=== PATIENT | male | born 1995 | race Caucasian/White ===

== ENCOUNTER 2016-11-11 22:03 | Emergency (ER) | payer OTHER ==
[~2016-11-11] VITALS: Ht 180.3 cm; Wt 81.1 kg
[2016-11-11 23:03] LABS: EOSINOPHIL (%) 3.1 % (0-5); EOSINOPHIL COUNT 0.2 K/uL (0-0.3); IMMATURE GRANULOCYTE (%) 0.2 % (0.0-0.7); IMMATURE GRANULOCYTE COUNT 0.1 K/uL; LYMPHOCYTE COUNT 1.8 K/uL (1.0-2.8); MCH 28.7 PG (29.0-34.0); MCHC 34.8 G/DL (30.0-36.0); MCV 82.4 FL (86-99); MEAN PLAT.VOLUME 10.2 uM^3 (9.0-12.4); MONOCYTE (%) 7.6 % (3-12); MONOCYTE COUNT 0.5 K/uL (0-0.8); NEUTROPHIL (%) 59.8 % (45-76); NEUTROPHIL COUNT 3.6 K/uL (1.8-6.4); PLATELET COUNT 176 K/uL (156-360); RBC DIS.WIDTH-CV 12.6 % (11.8-14.6); RBC DIS.WIDTH-SD 37.9 % (39-53); RED BLOOD COUNT 5.34 M/uL (4.00-5.50); WHITE BLOOD COUNT 6.1 K/uL (4.1-10.2)
[2016-11-11 23:19] LABS: AMYLASE 45 IU/L (1-118); CHLORIDE 105 mEq/L (99-109); POTASSIUM 3.9 mEq/L (3.7-5.4); SODIUM 141 mEq/L (136-147)
[2016-11-11 23:21] LABS: GLUCOSE 91 mg/dL (70-99)
[2016-11-11 23:22] LABS: ANION GAP 11 MEQ/L (2-14)
[2016-11-11 23:24] LABS: SERUM ETHYL ALCOHOL < 10 mg/dL
[2016-11-11 23:25] LABS: UREA NITROGEN (BUN) 15 mg/dL (9-23)
[2016-11-11 23:26] LABS: GFR ESTIMATE (CALCULATED) > 59 mL/min/
[2016-11-11 23:28] LABS: LIPASE 4 U/L (1.0-51.0)
[2016-11-12] MEDS ORDERED: SKELAXIN800 MG PO (01:27)
[2016-11-12] MEDS ORDERED: NORCO 5/3251 TABLET PO (01:27)
[2016-11-12] MEDS ORDERED: MEDROL DOSEPAK4 MG PO (01:27)
[2016-11-12 01:55] VITALS: BP 107/59
== END 2016-11-12 02:20 | disposition home or self-care (01) ==
LOC: EDBD 22:03 → EME 22:03
PROVIDERS: Emergency Medicine
DX: M54.2 Cervicalgia (principal); M25.511 Pain in right shoulder; S16.1XXS Strain of muscle, fascia and tendon at neck level, sequela; S43 Dislocation and sprain of joints and ligaments of shoulder girdle; F11.10 Opioid abuse, uncomplicated; F17.210 Nicotine dependence, cigarettes, uncomplicated
CPT/HCPCS: 70450; 71260; 72125; 72129; 72132; 73030; 74177; 80048; 81003; 82150; 83690; 85025; 99281; 99285; G0480; J1885; J2405; J3010